=== PATIENT | male | born 1935 | race Caucasian/White ===

== ENCOUNTER 2017-09-25 14:32 | Emergency (ER) | payer MEDICARE ==
[~2017-09-25 14:32] MED LIST: Sodium Chloride 0.9% 100 ML BAG ONE; Sodium Chloride 0.9% 500 ML BAG ONE
[2017-09-25 15:11] LABS: #Basophils 0.1 thou/uL (0.0-0.2); #Eosinphils 0.2 thou/uL (0.0-0.7); #Lymphocytes 1.2 thou/uL (1.20-3.40); #Monocytes 0.6 thou/uL (0.11-0.59); #Neutrophils 5.3 thou/uL (1.40-6.50); %Basophils 1.3 % (0.0-1.0); %Eosinophils 3.3 % (0.0-10.0); %Lymphocytes 16.1 % (21.0-51.0); %Monocytes 8.5 % (0.0-10.0); %Neutrophils 70.8 % (42.0-75.0); Hemoglobin 15.1 g/dL (14.0-18.0); Mean Corpuscular HGB CONC 33.1 g/dL (32.0-36.0); Mean Corpuscular Volume 87.7 fL (78.0-98.0); Mean Platelet Volume 6.9 fL (7.4-10.4); Platelet Count 215 thou/uL (130-400); RBC Distribution Width 13.1 % (11.5-14.5); White Blood Cell (WBC) Count 7.5 thou/uL (4.8-10.8)
[2017-09-25 15:14] LABS: INR-International Normal Ratio 1.4; PTT 37.1 SEC (22.9-36.1); Prothrombin Time 17.3 SEC (12.0-14.7)
[2017-09-25 15:24] LABS: ALT (SGPT) 21 U/L (8-55); AST (SGOT) 18 U/L (5-34); Albumin 3.8 g/dL (3.4-4.8); Alkaline Phosphatase 73 U/L (40-150); Anion Gap 15 mmol/L (10-20); BUN (Urea Nitrogen) 23 mg/dL (8.4-25.7); Bilirubin, Total 0.5 mg/dL (0.2-1.2); Calc. Creatinine Clearance 0 mL/min (70-130); Calcium 9.1 mg/dL (7.8-10.44); Carbon Dioxide 23 mmol/L (23-31); Chloride 108 mmol/L (98-107); Estimated GFR-MDRD 39; Globulin 2.8 g/dL (2.4-3.5); Glucose 130 mg/dL (83-110); Potassium 4.3 mmol/L (3.5-5.1); Protein, Total 6.6 g/dL (5.8-8.1); Sodium 142 mmol/L (136-145)
[2017-09-25 15:25] LABS: Digoxin 0.44 ng/mL (0.8-2.0)
[2017-09-25 15:38] LABS: Bilirubin Small (Negative); Blood, Urine Trace (Negative); Glucose, Urine (Dipstick) 100 mg/dL (Negative); Leukocyte Moderate (Negative); Nitrite Negative (Negative); Protein, Urine (Dipstick) 30 mg/dL (Neg-Trace); Specific Gravity, Urine 1.025 (1.005-1.030); Urobilinogen 0.2 mg/dL (0.2-1.0); pH, Urine 5.5 (5.0-9.0)
[2017-09-25 15:43] LABS: Clarity Hazy (Clear)
[2017-09-25 15:50] LABS: Bacteria/HPF 4+ HPF (None Seen)
[2017-09-25 15:55] LABS: Troponin I 2.567 ng/mL (< 0.028)
[2017-09-25] MEDS ORDERED: Piperacillin/Tazobactam 3.375 GM VIAL ONE (16:23)
--- NOTE | 2017-09-25 16:40 | RAD ---
CHEST ONE VIEW: HISTORY: Dyspnea. COMPARISON: None. FINDINGS: The cardiac silhouette is magnified by projection. The pulmonary vasculature is slightly engorged. The mediastinum is midline with a dual-lead left subclavian cardiac electronic device. No lobar cons olidation or evidence of pneumothorax. secured entrance monitor leads overly the chest. IMPRESSION: Borderline pulmonary vascular congestion. POS: [facility]
== END 2017-09-25 17:05 | disposition short-term general hospital (02) ==
LOC: MADERS 14:32
DX: I21.4 Non-ST elevation (NSTEMI) myocardial infarction (principal); N39.0 Urinary tract infection, site not specified; R19.5 Other fecal abnormalities; I48.91 Unspecified atrial fibrillation; N40.0 Benign prostatic hyperplasia without lower urinary tract symptoms; Z79.899 Other long term (current) drug therapy; Z79.01 Long term (current) use of anticoagulants
CPT/HCPCS: 36415; 71045; 80053; 80162; 81003; 81015; 82274; 82553; 83605; 84443; 84484; 85025; 85610; 85730; 87040; 93005; 94760; 96361; 96365; J2543; J7050

== ENCOUNTER 2018-06-20 08:58 | Emergency (ER) | payer MEDICARE ==
[~2018-06-20 08:58] MED LIST changes: +Sodium Chloride 0.9% 1,000 ML BAG ONE; -Sodium Chloride 0.9% 100 ML BAG ONE; -Sodium Chloride 0.9% 500 ML BAG ONE
[2018-06-20] MEDS ORDERED: Ondansetron PF 4 MG/2 ML Vial ONE (09:33)
[2018-06-20 09:58] LABS: ALT (SGPT) 27 U/L (8-55); AST (SGOT) 23 U/L (5-34); Albumin 4.1 g/dL (3.4-4.8); Alkaline Phosphatase 78 U/L (40-150); Anion Gap 17 mmol/L (10-20); BUN (Urea Nitrogen) 27 mg/dL (8.4-25.7); Bilirubin, Total 0.6 mg/dL (0.2-1.2); Calc. Creatinine Clearance 0 mL/min (70-130); Calcium 8.6 mg/dL (7.8-10.44); Carbon Dioxide 21 mmol/L (23-31); Chloride 106 mmol/L (98-107); Estimated GFR-MDRD 53; Globulin 2.9 g/dL (2.4-3.5); Glucose 156 mg/dL (83-110); Potassium 4.2 mmol/L (3.5-5.1); Sodium 140 mmol/L (136-145)
--- NOTE | 2018-06-20 10:08 | RAD ---
RADIOGRAPH CHEST 1 VIEW: Date: 06/20/2018. Time: 9:34 a.m. HISTORY: An 83-year-old male with dizziness. COMPARISON: 09/25/2017. FINDINGS: The lungs are very hypoinflated on the current study, obscuring the cardiac shadowing and obscuring p osterior bases of the lower lobes. This is a significant difference compared with the prior study. No other interval change is identified. Again noted is the dual-lead left subclavian pacemaker. No destiny pulmonary edema or consolidation visualized. No pneumothorax. IMPRESSION: 1. Pacemaker. 2. Limited study because of hypoinflated lungs. 3. No gross consolidation. JN [] POS: [facility]
[2018-06-20 10:09] LABS: Band 8 % (5-11); Hemoglobin 16.1 g/dL (14.0-18.0); Lymphocytes 5 % (21-51); MDiff Complete? YES; Mean Corpuscular HGB CONC 31.7 g/dL (32.0-36.0); Mean Corpuscular Hemoglobin 28.3 pg (27.0-31.0); Mean Corpuscular Volume 89.3 fL (78.0-98.0); Monocytes 8 % (0-10); Neutrophil 79 % (42-75); Platelet Count 213 thou/uL (130-400); Platelet Morphology Comment Appears Adequate; RBC Distribution Width 14.1 % (11.5-14.5); Red Blood Cell (RBC) Count 5.69 mill/uL (4.70-6.10); White Blood Cell (WBC) Count 7.9 thou/uL (4.8-10.8)
[2018-06-20] MEDS ORDERED: Sodium Chloride 0.9% 1,000 ML ONE (11:41)
[2018-06-20] MEDS ORDERED: Promethazine HCl 25 MG/ML VIAL ONE (13:48)
== END 2018-06-20 14:27 | disposition home or self-care (01) ==
LOC: MADERS 08:58
DX: E86.0 Dehydration (principal); K52.9 Noninfective gastroenteritis and colitis, unspecified; I48.91 Unspecified atrial fibrillation; Z87.891 Personal history of nicotine dependence; Z79.01 Long term (current) use of anticoagulants; Z79.899 Other long term (current) drug therapy
CPT/HCPCS: 36415; 71045; 80053; 83605; 83880; 84484; 85025; 93005; 94760; 96361; 96374; J2405; J2550; J7050

== ENCOUNTER 2024-10-13 01:19 | Emergency (ER) | payer MEDICARE, OTHER ==
[2024-10-13] MEDS ORDERED: Nitroglycerin 0.4 MG TAB 1 EACH ONE (01:41)
[2024-10-13] MEDS ORDERED: Aspirin Chewable 81 MG TAB ONE (01:41)
[2024-10-13 01:52] LABS: MDiff Complete? YES
[2024-10-13 01:53] LABS: Hematocrit 41.3 % (42.0-52.0); Hemoglobin 13.6 g/dL (14.0-18.0); INR-International Normal Ratio 1.0; Mean Corpuscular Hemoglobin 30.6 pg (27.0-31.0); Mean Corpuscular Volume 92.9 fl (78.0-98.0); Platelet Count 214 10x3/uL (130-400); Prothrombin Time 13.3 sec (12.0-14.7); Red Blood Cell (RBC) Count 4.44 mill/uL (4.70-6.10); White Blood Cell (WBC) Count 7.0 10x3/uL (4.8-10.8)
[2024-10-13 01:54] LABS: PTT 31.8 sec (22.9-36.1)
[2024-10-13 02:05] LABS: ALT (SGPT) 21 U/L (Less than 45); AST (SGOT) 27 U/L (11-34); Albumin 4.3 g/dL (3.1-4.5); Alkaline Phosphatase 52 U/L (40-110); Anion Gap 16 mmol/L (10-20); BUN (Urea Nitrogen) 25 mg/dL (8.4-25.7); Bilirubin, Total 0.3 mg/dL (0.3-1.2); Calc. Creatinine Clearance 0 mL/min (70-130); Calcium 9.6 mg/dL (7.8-10.44); Carbon Dioxide 25 mmol/L (23-31); Chloride 105 mmol/L (98-107); Globulin 2.8 g/dL (2.4-3.5); Glucose 97 mg/dL (83-110); Magnesium 2.1 mg/dL (1.6-2.6); Potassium 3.8 mmol/L (3.5-5.1); Sodium 142 mmol/L (136-145); Troponin I 0.012 ng/mL (< 0.028)
[2024-10-13 04:37] LABS: Troponin I 0.020 ng/mL (< 0.028)
== END 2024-10-13 05:32 | disposition home or self-care (01) ==
LOC: MADERS 01:19
DX: R07.89 Other chest pain (principal); I48.91 Unspecified atrial fibrillation; Z95.0 Presence of cardiac pacemaker; Z87.891 Personal history of nicotine dependence; Z79.01 Long term (current) use of anticoagulants; Z79.899 Other long term (current) drug therapy; Z79.890 Hormone replacement therapy
CPT/HCPCS: 36415; 71045; 80053; 83735; 83880; 84484; 85025; 85610; 85730; 93005; 94760